=== PATIENT | male | born 1995 | race Caucasian/White ===

== ENCOUNTER 2022-12-13 10:38 | Emergency (ER) | payer BC, SELFPAY ==
[2022-12-13 10:47] VITALS: BP 128/91; PULSE 114; RESP 14; TEMP 36.4; O2SAT 100; BMI 21.7
--- NOTE | 2022-12-13 11:12 | ED_ITS ---
HPI - Back Pain/Injury General Chief Complaint: Back Pain/Injury Stated Complaint: back injury Time Seen by Provider: 12/13/22 11:11 Source: patient Mode of arrival: Ambulatory Limitations: no limitations History of Present Illness HPI Narrative: This is a 27-year-old male with no reported medical issues who has had back pain starting that sort of peaked yesterday and is starting to improve a little bit today. Patient states Wednesday he was working on a roof he did a lot of bending twisting to clean a roof in the gutters. He states no falls he did not recall any significant injuries or tweaking his back otherwise. He has not had similar issues in the past he started have slept slowly gradually worsening tightness and discomfort along the lower lumbar area without any radiation. He is not had any paresthesias no numbness, tingling or weakness. No fecal or urinary incontinence, no saddle anesthesia. He does not note any difficulty with walking but states movement does seem to make it worse. He noted yesterday he felt a little bit sweaty when he was hurting a lot trying to get around the house when it was more intense. Patient denies any chest pain or shortness of breath. No vomiting, no diarrhea constipation. No cold cough or congestive symptoms. Patient has been taking ibuprofen 200 mg every 4 hours, total of 1200 mg 24 hour. Patient states it seems to be helpful. His symptoms are not resolved but they are improved from yesterday. Patient denies any medical issues otherwise, no daily medications. No prior surgeries. No tobacco, occasional alcohol, no illicit. Patient denies any IV or injection drugs. Patient states he does not have an active primary care physician. He lives on [address]. Related Data Allergies Allergy/AdvReac Type Severity Reaction Status Date / Time No Known Drug Allergies Allergy Verified 12/13/22 10:51 Review of Systems Review of Systems ROS Unobtainable: All systems reviewed & are unremarkable except as noted in HPI and below Patient History Social History Smoking Status: Never smoker Smoking Status: Never smoker alcohol intake frequency: 0-2 drinks per day Substance Use Type: does not use Exam Narrative Exam Narrative: GENERAL: Alert and oriented x three, thin, well-appearing male in no acute distress HEENT: Head normocephalic, atraumatic, EOMI, pupils reactive, face symmetric, moist mucous membranes NECK: Supple, full range of motion CARDIOVASCULAR: Regular rate and rhythm without murmurs, rubs or gallops. Patient at bedside heart rate is 85 RESPIRATORY: Breath sounds equal bilaterally, no wheezes rales or rhonchi. ABDOMEN: Soft, nontender. Normoactive bowel sounds all 4 quadrants. No guarding or rebound, rigidity, no mass : No CVA tenderness BACK: No cervical, thoracic or lumbar vertebral point tenderness. Patient has normal range of motion. Patient's gait is normal. Rectal exam is different. Muscle strength is 5/5 in lower extremities, patient notes some mild discomfort in his right buttock with right leg raise but states no pain radiating down his leg and no difficulty, negative left straight leg raise, DTRs are 2/4 and lower extremities. Tibialis pulses are 2+ and lower extremities. Sensation is intact in the lower extremities. No skin changes. EXTREMITIES: Normal range of motion, no clubbing or edema. Neurovascularly intact NEUROLOGICAL: Cranial nerves II through XII grossly intact. Moving all extremities SKIN: Warm, dry, no petechiae, no rashes or lesions. Initial Vital Signs Initial Vital Signs: Vital Signs Temperature 97.5 F L 12/13/22 10:47 Pulse Rate 114 H 12/13/22 10:47 Respiratory Rate 14 12/13/22 10:47 Blood Pressure 128/91 H 12/13/22 10:47 Pulse Oximetry 100 12/13/22 10:47 Oxygen Delivery Method Room Air 12/13/22 10:47 Course Vital Signs Vital signs: Vital Signs - 8 hr 12/13/22 10:47 Temperature 97.5 F L Pulse Rate 114 H Respiratory Rate 14 Blood Pressure 128/91 H Pulse Oximetry 100 Oxygen Delivery Method Room Air MDM - Back Pain/Injury MDM Narrative Medical decision making narrative: This is a 27-year-old male who presents with low back pain after spending and afternoon working on a roof of a lot of twisting movements and the following day developing some lower lumbar pain without radiation no red flag symptoms. Patient's pain is starting to improve today this started peak intensity was yesterday and is little bit better today. He has been taking ibuprofen. Discussed with patient with his short period of discomfort and findings today does not require imaging. He can increase his ibuprofen up to 2400 mg daily and can add Tylenol as needed. We discussed red flag symptoms and reasons to return. Also discussed that if he has persistent but controlled symptoms that are not improving over time that he should follow up with primary care for further evaluation. Discharge Plan Departure Patient Disposition: Home Clinical Impression: Strain of lumbar region Instructions: DI for Back Strain or Sprain Activity Restrictions/Additional Instructions: Please follow-up if your symptoms are persisting beyond several weeks or are slowly worsening but not out of control. I hope you continue to feel better. Continue with gentle motion and increase her activity as tolerated. You can take ibuprofen up to 600 mg every 6 hours and/or Tylenol up to a 1000 mg every 6 hours as needed for pain. Heat, warm packs, warm showers or baths are sometimes helpful. Please return for fevers, rapidly worsening back pain, new numbness, weakness, loss of sensation, loss of bowel or bladder control or other new or concerning changes. Referrals: Miscellaneous,Doctor, [Primary Care Provider] - Stand Alone Forms: Patient Portal/API
== END 2022-12-13 11:36 | disposition home or self-care (01) ==
PROVIDERS: Emergency Provider Emergency Medicine; Family Provider Family Medicine
DX: S39.012A Strain of muscle, fascia and tendon of lower back, initial encounter (principal); X50.1XXA Overexertion from prolonged static or awkward postures, initial encounter
CPT/HCPCS: 99281